=== PATIENT | female | born 1995 | race Two or more races ===

== ENCOUNTER 2022-07-10 09:02 | Observation (INO) | payer MEDICAID, OTHER | END 2022-07-10 11:15 | disposition home or self-care (01) | LOC: LDRP 09:02 | PROVIDERS: ADMIT Obstetrics & Gynecology; ATTEND Obstetrics & Gynecology | DX: O48.0 Post-term pregnancy (principal); Z3A.40 40 weeks gestation of pregnancy | CPT/HCPCS: 59025; 76818; 81002; 94760; G0378 ==

== ENCOUNTER 2022-07-12 14:20 | Observation (INO) | payer MEDICAID ==
[2022-07-13] MEDS ORDERED: PREN-96 PO (10:40)
== END 2022-07-12 15:13 | disposition home or self-care (01) ==
LOC: UNDOADMOB 14:20 → LDRP 14:20 → UNDODISOB 15:13
PROVIDERS: ADMIT Obstetrics & Gynecology; ATTEND Obstetrics & Gynecology
DX: O48.0 Post-term pregnancy (principal); Z3A.40 40 weeks gestation of pregnancy
CPT/HCPCS: 59025; 81002; 94760; G0378

== ENCOUNTER 2022-07-13 03:54 | Inpatient (IN) | payer MEDICAID ==
[~2022-07-13] VITALS: Ht 170.2 cm; Wt 83.9 kg
[2022-07-13] MEDS ORDERED: LIDOCAINE 2%HCL (LOCAL ANESTH.) INJ 20ML MDV IJ PRN (04:30)
[2022-07-13] MEDS ORDERED: PHISODERM TOP SOLN 240ML BTL TOP PRN (04:30)
[2022-07-13] MEDS ORDERED: LACTATED RINGER'S 1,000 ML IV SCH (04:30)
[2022-07-13] MEDS ORDERED: BUTORPHANOL TARTRATE 2 MG/1 ML VIAL IV PRN ×2 (04:30)
[2022-07-13] MEDS ORDERED: DERMOPLAST 60ML BOTTLE TOP PRN (04:30)
[2022-07-13] MEDS ORDERED: PROMETHAZINE HCL 25 MG/ML 1ML IV PRN (04:30)
[2022-07-13] MEDS ORDERED: WITCH HAZEL-GLYCERIN PAD TOP PRN (04:30)
[2022-07-13 04:54] LABS: Basophils # (auto) 0.1 10 ^3/uL (0-0.2); Basophils % (auto) 0.6 % (0.0-2.0); Eosinophils # (auto) 0.1 10 ^3/uL (0-0.8); Eosinophils % (auto) 0.7 % (0.0-7.0); Hematocrit 38.1 % (36.0-46.0); Hemoglobin 13.1 g/dL (12.2-16.2); Lymphocytes # (auto) 2.2 10 ^3/uL (0.4-5.4); Lymphocytes % (auto) 19.1 % (10.0-50.0); Mean Corpuscular Hemoglobin 31.9 pg (28.0-32.0); Mean Corpuscular Hgb Conc. 34.4 g/dL (32.0-36.0); Mean Corpuscular Volume 92.6 fL (80.0-100.0); Monocytes % (auto) 8.9 % (0.0-12.0); Neutrophils # (auto) 8.3 10 ^3/uL (1.6-8.6); Neutrophils % (auto) 70.7 % (37.0-80.0); Nucleated Red Blood Cells % 0.1 %; Red Blood Cells 4.12 10^6/uL (4.0-5.20); Red Cell Distribution Width 13.3 % (11.8-14.3); White Blood Cell 11.7 10^3/uL (4.4-10.8)
[2022-07-13] MEDS ORDERED: LACT. RINGERS/OXYTOCIN 20UNITS 1,000 ML IV ONE (04:58)
[2022-07-13] MEDS ORDERED: miSOPROStol 100 mcg TAB ONE (04:59)
[2022-07-13] MEDS ORDERED: METHYLERGONOVINE MALEATE 0.2 MG/ML AMP IM ONE (04:59)
[2022-07-13] MEDS ORDERED: LIDOCAINE 2%HCL (LOCAL ANESTH.) INJ 20ML MDV ONE (05:02)
[2022-07-13 05:05] LABS: Urine Bacteria FEW /hpf (None Seen); Urine Blood Negative /uL (Negative); Urine Specific Gravity 1.006 (1.001-1.035); Urine WBC 2 /hpf (0 - 5)
[2022-07-13 05:08] LABS: INR 0.92 (0.9-1.15); Partial Thromboplastin Time 26.2 sec (24.6-33.4)
[2022-07-13] MEDS ORDERED: ACETAMINOPHEN 325 MG TAB PO PRN ×2 (05:15→07:45)
[2022-07-13] MEDS ORDERED: LACT. RINGERS/OXYTOCIN 20UNITS 500 ML IV ONE ×2 (05:15→05:45)
[2022-07-13 05:16] LABS: Calcium 8.8 mg/dL (8.5-10.1); Potassium 3.6 mmol/L (3.5-5.1)
[2022-07-13 05:20] LABS: Albumin 2.8 g/dL (3.4-5.0)
[2022-07-13 05:23] LABS: Bilirubin, Total 0.3 mg/dL (0.2-1.0); Total Protein 7.2 g/dL (6.4-8.2)
[2022-07-13 05:31] LABS: Alcohol, Urine < 3.0 mg/dL (0-10); Amphetamine Screen, Urine NEGATIVE (NEGATIVE); Barbiturate Scree,Urine NEGATIVE (NEGATIVE); Benzodiazephine Screen, Urine NEGATIVE (NEGATIVE); Cannabinoid Screen, Urine NEGATIVE (NEGATIVE); Cocaine Screen, Urine NEGATIVE (NEGATIVE); Opiate Scree,Urine NEGATIVE (NEGATIVE); Phencyclidine Screen, Urine NEGATIVE (NEGATIVE)
[2022-07-13] MEDS ORDERED: IBUPROFEN 600 MG TAB PO PRN (07:45)
[2022-07-13] MEDS ORDERED: PREN-96 PO (10:40)
[2022-07-13 11:10] VITALS: BP 115/65
[2022-07-13 15:25] VITALS: BP 107/77
[2022-07-13] MEDS ORDERED: RHO (D) IMMUNE GLOBULIN 300 MCG INJ IM ONE (16:30)
[2022-07-13 16:56] VITALS: BP 107/77
[2022-07-13 19:00] VITALS: BP_SYST 117; BP_SYST 119; BP_DIAS 56; BP_DIAS 72
[2022-07-13 23:00] VITALS: BP 109/68
[2022-07-14 03:00] VITALS: BP 108/67
[2022-07-14 07:07] LABS: RPR Non Reactive (Non Reactive)
[2022-07-14 07:15] VITALS: BP 107/54
[2022-07-14 11:10] VITALS: BP 114/70
[2022-07-14 11:21] VITALS: BP 108/57
== END 2022-07-14 12:10 | disposition home or self-care (01) | DRG 560 ==
LOC: LDRP 03:54 → OBSVTOIN 04:20 → LDRP 04:38
PROVIDERS: ADMIT Obstetrics & Gynecology; ATTEND Obstetrics & Gynecology
PROC: 10E0XZZ Delivery of Products of Conception, External Approach (ICD-10-PCS; principal; 2022-07-13)
PROC: 0HQ9XZZ Repair Perineum Skin, External Approach (ICD-10-PCS; 2022-07-13)
PROC: 0UQJXZZ Repair Clitoris, External Approach (ICD-10-PCS; 2022-07-13)
PROC: 3E033VJ Introduction of Other Hormone into Peripheral Vein, Percutaneous Approach (ICD-10-PCS; 2022-07-13)
DX: O70.0 First degree perineal laceration during delivery (principal); Z37.0 Single live birth; Z20.822 Contact with and (suspected) exposure to COVID-19; Z3A.39 39 weeks gestation of pregnancy
CPT/HCPCS: 36415; 59025; 59409; 80053; 80307; 81001; 85025; 85610; 85730; 86592; 86850; 86870; 86900; 86901; 87426; 90384; 94760; 94762; 96360; 96361; 96365; 96366; G0378; J2590

== ENCOUNTER 2023-06-23 09:12 | Day surgery (SDC) | payer MEDICAID ==
[2023-06-22 10:38] LABS: Basophils # (auto) 0.1 10 ^3/uL (0-0.2); Basophils % (auto) 1.4 % (0.0-2.0); Eosinophils # (auto) 0.1 10 ^3/uL (0-0.8); Eosinophils % (auto) 2.6 % (0.0-7.0); Hematocrit 40.6 % (36.0-46.0); Hemoglobin 13.7 g/dL (12.2-16.2); Lymphocytes # (auto) 1.7 10 ^3/uL (0.4-5.4); Lymphocytes % (auto) 30.6 % (10.0-50.0); Mean Corpuscular Hemoglobin 30.4 pg (28.0-32.0); Mean Corpuscular Hgb Conc. 33.7 g/dL (32.0-36.0); Mean Corpuscular Volume 90.1 fL (80.0-100.0); Monocytes # (auto) 0.4 10 ^3/uL (0-1.3); Monocytes % (auto) 7.4 % (0.0-12.0); Neutrophils # (auto) 3.3 10 ^3/uL (1.6-8.6); Red Blood Cells 4.51 10^6/uL (4.0-5.20); Red Cell Distribution Width 13.1 % (11.8-14.3); White Blood Cell 5.6 10^3/uL (4.4-10.8)
[2023-06-22 10:47] LABS: Urine Bacteria FEW /hpf (None Seen); Urine Blood Negative /uL (Negative); Urine Clarity Clear (Clear); Urine Color Straw (Yellow); Urine Protein, UAD Negative (Negative); Urine Specific Gravity 1.008 (1.001-1.035); Urine Urobilinogen Normal (Negative); Urine WBC 2 /hpf (0 - 5); Urine pH 6.5 (5.0-8.0)
[2023-06-22 10:49] LABS: INR 1.09 (0.9-1.15); Partial Thromboplastin Time 26.9 SEC (24.5-34.5); Prothrombin Time 11.4 sec (9.3-11.8)
[2023-06-22 11:19] LABS: Albumin 4.7 g/dL (3.2-4.8); Alkaline Phosphatase 80 U/L (46-116); Anion Gap 7 (5-15); Aspartate Aminotransferase 12 U/L (13-40); BUN/Creatinine Ratio 14.3 (10.0-20.0); Blood Urea Nitrogen 10 mg/dL (9-23); Calcium 9.8 mg/dL (8.5-10.1); Carbon Dioxide 26 mmol/L (20-30); Chloride 109 mmol/L (98-107); Glucose 85 mg/dL (74-106); Potassium 3.8 mmol/L (3.5-5.1); Sodium 142 mmol/L (136-145)
[2023-06-22 11:20] LABS: Bilirubin, Total 0.5 mg/dL (0.2-1.0)
[2023-06-22 11:21] LABS: Total Protein 6.8 g/dL (5.7-8.2)
[2023-06-22 11:24] LABS: Alanine Aminotransferase < 9 U/L (7-40)
[~2023-06-23] VITALS: Ht 170.2 cm; Wt 61.2 kg
[2023-06-23] MEDS ORDERED: PROPOFOL 10 MG/ML 20 ML IV ONE (10:55)
[2023-06-23] MEDS ORDERED: MEPERIDINE HCL (50 MG/ML) 1 ML VIAL ONE (10:55)
[2023-06-23] MEDS ORDERED: SODIUM CHLORIDE LOCK 10 ML ONE (10:55)
[2023-06-23] MEDS ORDERED: MIDAZOLAM HCL 2MG/2ML 2ml VIAL (1mg/ml) ONE (10:55)
[2023-06-23] MEDS ORDERED: fentaNYL CITRATE 100 MCG/2 ML VL ONE (10:55)
[2023-06-23] MEDS ORDERED: DexAMETHasone SOD PHOS 10MG/1ML VIAL INJ ONE (10:55)
[2023-06-23] MEDS ORDERED: ONDANSETRON HCL 4 MG/2 ML VIAL ONE (10:55)
[2023-06-23] MEDS ORDERED: ceFAZolin 2 GM/D5W50ml 50 ML IV ONE (11:11)
[2023-06-23] MEDS ORDERED: IBUP-1456 PO (11:45)
[2023-06-23] MEDS ORDERED: FERRIC SUBSULFATE TOPICAL SOLN 30 ML BTL ONE (11:51)
[2023-06-23] MEDS ORDERED: IODINE STRONG 5% SOLN 473ML ONE (11:51)
[2023-06-23] MEDS ORDERED: KETAMINE 50mg/ML 1ml syringe ONE (12:40)
[2023-06-23] MEDS: LIDOCAINE W/ EPINEPHRINE 2% INJ 20ML VIAL ONE (13:15)
[2023-06-23 13:32] VITALS: TEMP 97.5; O2SAT 99
[2023-06-23] MEDS ORDERED: MORPHINE SULFATE INJ 2 MG/ml SYRG IV PRN (13:45)
[2023-06-23] MEDS ORDERED: KETOROLAC TROMETH 30 MG/ML 1ML VIAL IV ONE (13:45)
[2023-06-23] MEDS ORDERED: METOCLOPRAMIDE HCL 5MG/ml INJ 2ml VIAL IV PRN (13:45)
[2023-06-23] MEDS ORDERED: HYDROmorphone HCL 2 MG/ML VL/or syr IV PRN ×2 (13:45)
[2023-06-23 14:50] VITALS: BP 125/69; PULSE 68; RESP 17; O2SAT 97
== END 2023-06-23 15:12 | disposition home or self-care (01) ==
LOC: SUR 09:12
PROVIDERS: ATTEND Obstetrics & Gynecology
DX: N87.1 Moderate cervical dysplasia (principal)
CPT/HCPCS: 36415; 57522; 80053; 81001; 81025; 84702; 85025; 85610; 85730; 86850; 86900; 86901; J0690; J1100; J2175; J2250; J2405; J2704; J3010

== ENCOUNTER 2023-06-25 10:59 | Emergency (ER) | payer MEDICAID ==
[~2023-06-25] VITALS: Ht 170.2 cm; Wt 61.0 kg
[~2023-06-25 10:59] MED LIST: IBUP-1456 PO
[2023-06-25 11:42] VITALS: BP 113/94; PULSE 94; RESP 14; O2SAT 98
== END 2023-06-25 12:42 | disposition home or self-care (01) ==
LOC: ER 10:59
DX: S50.11XA Contusion of right forearm, initial encounter (principal); I80.8 Phlebitis and thrombophlebitis of other sites; Z79.1 Long term (current) use of non-steroidal anti-inflammatories (NSAID); X58.XXXA Exposure to other specified factors, initial encounter; Y93.89 Activity, other specified; Y92.89 Other specified places as the place of occurrence of the external cause; Y99.8 Other external cause status